=== PATIENT | female | born 1990 | race Caucasian/White ===

== ENCOUNTER 2020-02-01 17:18 | Inpatient (IN) | payer OTHER ==
--- NOTE | 2020-02-01 17:23 | PDOC ---
Rapid Medical Evaluation Time Seen by Provider: 02/01/20 17:21 Medical Evaluation: Allergies Allergy/AdvReac Type Severity Reaction Status Date / Time No Known Allergies Allergy Verified 02/01/20 17:20 02/01/20 17:21 CC: elevated bp, lower extremity edema, 37 weeks , went to radio sportscaster and was told to come here, sb donovan COMPENSATION MANAGER Exam: 2 + edema, bp elevated 170/102, hr 104 Plan: urine, labs, u/s, l& D notified Discharge Disposition - Diagnosis Elevated BP without diagnosis of hypertension - Referrals - Patient Instructions - Post Discharge Activity
[2020-02-01 17:29] VITALS: BMI 45.8
[2020-02-01 21:04] LABS: BASO % 0.1 % (0-2.0); EOS % 0.7 % (0-4.5); HEMATOCRIT 35.8 % (32.4-45.2); HEMOGLOBIN 12.1 GM/dL (10.7-15.3); LYMPH % 18.9 % (8-40); MCHC 33.7 g/dl (32.0-36.0); MEAN PLT VOLUME 9.5 fl (7.5-11.1); MONO % 7.2 % (3.8-10.2); NEUT % 73.1 % (42.8-82.8); PLATELET COUNT 195 K/MM3 (134-434); RBC 4.02 M/mm3 (3.60-5.2); RDW 14.5 % (11.6-15.6); WHITE BLOOD COUNT 7.7 K/mm3 (4.0-10.0)
[2020-02-01 21:05] LABS: URINE APPEARANCE CLEAR; URINE COLOR YELLOW; URINE GLUCOSE (UA) NEGATIVE (NEGATIVE)
[2020-02-01 21:06] LABS: EPI CELLS 19 /uL (0-25.1); HYALINE CASTS 1 /uL (0-3.1); PH,URINE 6.5 (5.0-8.0); URINE BACTERIA 296 /uL (0-1359); URINE BILIRUBIN NEGATIVE (NEGATIVE); URINE KETONE NEGATIVE (NEGATIVE); URINE LEUK ESTERASE NEGATIVE (NEGATIVE); URINE NITRITE NEGATIVE (NEGATIVE); URINE PROTEIN 3+ (NEGATIVE); URINE RBC 3 /uL (0-23.9); URINE WBC 13 /uL (0-25.8)
[2020-02-01 21:18] LABS: URIC ACID 5.7 mg/dL (2.6-7.2)
[2020-02-01 21:22] LABS: ALBUMIN 2.2 g/dl (3.4-5.0); BILIRUBIN,TOTAL 0.3 mg/dL (0.2-1); BLOOD UREA NITROGEN 11.4 mg/dL (7-18); CALCIUM 8.3 mg/dL (8.5-10.1); CREATININE 0.6 mg/dL (0.55-1.3); MAGNESIUM 1.9 mg/dL (1.8-2.4); POTASSIUM 4.1 mmol/L (3.5-5.1); TOT PROT 5.6 g/dl (6.4-8.2)
[2020-02-01] MEDS ORDERED: ELECTROLYTE-148 SOLN 1,000 ML IV SCH (22:15)
[2020-02-01] MEDS ORDERED: AMPICILLIN - 2 GM in SODIUM CHLORIDE 100 ML IVPB ONE (22:17)
[2020-02-01] MEDS ORDERED: DINOPROSTONE 10 MG VAGINAL SUPPOSITORY VG ONE (22:19)
--- NOTE | 2020-02-01 22:28 | HP ---
Past Medical History - Primary Care Physician PCP:: Filipe Mathis - Admission Chief Complaint: Elevated BP at health center History of Present Illness: Patient denies SOB, CP, Nunes/vision changes, Epigastric pain, tingling and numbness. She reports pronounced LE edema. History Source: Patient Limitations to Obtaining History: No Limitations - Past Medical History PRODUCT DESIGNER: No: Alzheimer's, CVA, Dementia, Migraine, Multiple Sclerosis, Peripheral Neuropathy, Parkinson's, Seizure, Syncope, TIA, Vertigo, Other Cardiovascular: No: AFIB, Aneurysm, Aortic Insufficiency, Aortic Stenosis, CAD, CHF, Deep Vein Thrombosis, HTN, Hyperlipdemia, LA, Mitral Insufficiency, Mitral Stenosis, Murmur, Pulmonary Hypertension, Other Pulmonary: No: Asthma, Bronchitis, Cancer, COPD, O2 Dependent, Pneumonia, Previously Intubated, Pulmonary Embolus, Pulmonary Fibrosis, Sleep Apnea, Other Gastrointestinal: No: Ascites, Cancer, Constipation, Crohn's Disease, Diverticulitis, Diverticulosis, Esophageal Varices, Gastritis, GERD, GI Bleed, Hemorrhoids, Hiatal Hernia, Inflamatory Bowel Disease, Irritable Bowel Disease, Pancreatitis, Peptic Ulcer Disease, Ulcerative Colitis, Other Hepatobiliary: No: Cirrhosis, Cholelithiasis, Cholecystitis, Choledocholithiasis, Hepatitis A, Hepatitis B, Hepatitis C, Other Renal/: No: Renal Failure, Renal Inusuff, BPH, Cancer, Hematuria, Hemodialysis, Neurogenic Bladder, Renal Calculi, UTI, Other Reproductive: No: Ectopic , Endometriosis, Fibroids, PID, Polycystic Ovary Syndrome, Postmenopausal, Other ...: 3 ...Para: 1 ...Term: 1 ...: 0 ...Spon : 1 ...Induced : 0 ...Living Children: 1 ...LMP: 05/18/19 ... Weeks Gestation by Dates: 36.0 ...EDC by Dates: 02/29/20 ...EDC by Sono: 02/22/20 Heme/Onc: No: Anemia, B12 Deficiency, Bleeding Disorder, Cancer, Current Chemotherapy, Current Radiation Therapy, Hemochromatosis, Hypercoaguable State, Myeloproliferative Synd, Sickle Cell Disease, Sickle Cell Trait, Thrombocytopenia, Other Infectious Disease: No: AIDS, C-Diff, Herpes Zoster, HIV, MRSA, STD's, Tuberculosis, VREF, Other Psych: No: Addictions, Anxiety, Bipolar, Depression, Panic, Psychosis, Schizophr enia, Other Musculoskeletal: No: Bursitis, Chronic low back pain, Hemiparesis, Hemiplegia, Osteoarthritis, Paraplegia, Other Rheumatology: No: Fibromyalgia, Gout, Lupus, Rheumatoid Arthritis, Sarcoidosis, Vasculitis, Other ENT: No: Allergic Rhinitis, Sinusitis, Other Endocrine: No: Samy's Disease, Clyde's Disease, Diabetes Insipidus, Diabetes Mellitus, Hyperparathyroidism, Hyperthyroidism, Hypothyroidism, Osteopenia, SIADH, Other Dermatology: No: Basal Cell, Cellulitis, Eczema, Melanoma, Psoriasis, Squamous Cell, Other - Past Surgical History Past Surgical History: Yes: None Hx Myomectomy: No Hx Transabdominal Cerclage: No - Smoking History Smoking history: Never smoked - Alcohol/Substance Use Hx Alcohol Use: No History of Substance Use: reports: None - Social History History of Recent Travel: No Home Medications - Allergies Allergies/Adverse Reactions: Allergies Allergy/AdvReac Type Severity Reaction Status Date / Time No Known Allergies Allergy Verified 02/01/20 17:34 Family Medical History Family History: Unremarkable Review of Systems - Review of Systems Constitutional: reports: No Symptoms Eyes: reports: No Symptoms HENT: reports: No Symptoms Neck: reports: No Symptoms Cardiovascular: reports: No Symptoms Respiratory: reports: No Symptoms Gastrointestinal: reports: No Symptoms Genitourinary: reports: No Symptoms Breasts: reports: No Symptoms Reported Musculoskeletal: reports: Other (LE swelling) Integumentary: reports: No Symptoms Neurological: reports: No Symptoms Endocrine: reports: No Symptoms Hematology/Lymphatic: reports: No Symptoms Psychiatric: reports: No Symptoms Physical Exam - Maternity Vital Signs: Vital Signs Temperature 98.8 F 02/01/20 17:21 Pulse Rate 92 H 02/01/20 17:21 Respiratory Rate 20 02/01/20 17:21 Blood Pressure 176/110 H 02/01/20 17:21 O2 Sat by Pulse Oximetry (%) 100 02/01/20 17:21 BP in L&D in mild range as reported by nursing Constitutional: Yes: No Distress HENT: Yes: Atraumatic Neck: Yes: Supple Cardiovascular: Yes: Regular Rate and Rhythm - Abdominal Exam/OB Number of Fetuses: Single Presentation: Vertex (sono) Regularity: Irritability Monitor Mode: External Heart Rate (range): 130 Category: I Accelerations: Uniform Decelerations: None - Vaginal Exam/OB Vaginal Bleeding: No Speculum Exam: No (cervidil placed in vaginal vault) Dilatation (cm): 0.5 Effacement (%): 50 Amniotic Membrane Status: Intact Presentation: Vertex/Position Station: -3 - Physical Exam Musculoskeletal: Yes: WNL Extremities: Yes: WNL Edema: Yes Edema: LLE: 2+, RLE: 2+ Integumentary: Yes: WNL Deep Tendon Reflex Grade: Normal +2 ...Motor Strength: WNL Psychiatric: Yes: Alert, Oriented - Labs Lab Results: CBC, BMP 02/01/20 20:40 02/01/20 20:40 Imaging - Results Ultrasound: Report Reviewed Assessment/Plan 30 y/o P1 @ 37.0wks, admitted for PEC w/o severe features, BP in mild range and no evidence of PRODUCT DESIGNER irritability, reassuring status, rH negative, + GDS and negative GTT, GBS unknown. Patient was counseled regarding diagnosis and indication for induction. Their respective risks and complications explained. Induction of labor initiated with cervidil. -Labetalol 200 BID -Continuous monitoring -Ampicillin for GBS prophylaxis -BP control
[2020-02-01] MEDS ORDERED: LABETALOL HCL 200 MG TABLET (FP) ONE (22:57)
[2020-02-01] MEDS: LABETALOL HCL 200 MG TABLET (FP) PO SCH (23:00)
[2020-02-02 00:38] LABS: BASO % 0.3 % (0-2.0); EOS % 0.5 % (0-4.5); HEMATOCRIT 36.5 % (32.4-45.2); HEMOGLOBIN 12.2 GM/dL (10.7-15.3); LYMPH % 20.9 % (8-40); MCH 29.8 pg (25.7-33.7); MCHC 33.4 g/dl (32.0-36.0); MEAN CELL VOLUME 89.1 fl (80-96); MEAN PLT VOLUME 9.5 fl (7.5-11.1); NEUT % 71.3 % (42.8-82.8); PLATELET COUNT 198 K/MM3 (134-434); RBC 4.09 M/mm3 (3.60-5.2); RDW 14.4 % (11.6-15.6); WHITE BLOOD COUNT 8.8 K/mm3 (4.0-10.0)
[2020-02-02 00:57] LABS: INR 0.91 (0.83-1.09); PROTHROMBIN TIME (PATIENT) 10.7 SEC (9.7-13.0)
[2020-02-02 01:00] LABS: ACTIVATED PTT 24.1 SECONDS (25.2-36.5)
[2020-02-02 01:06] LABS: BLOOD UREA NITROGEN 11.5 mg/dL (7-18); CALCIUM 8.1 mg/dL (8.5-10.1); CREATININE 0.5 mg/dL (0.55-1.3); POTASSIUM 4.2 mmol/L (3.5-5.1)
[2020-02-02] MEDS ORDERED: LABETALOL HCL 200 MG TABLET (FP) ONE (10:06)
[2020-02-02] MEDS: LABETALOL HCL 200 MG TABLET (FP) PO SCH ×2 (10:08→21:49)
[2020-02-02] MEDS ORDERED: AMPICILLIN - 2 GM in SODIUM CHLORIDE 100 ML IVPB ONE (11:00)
[2020-02-02] MEDS ORDERED: OXYTOCIN 30 UNITS in 0.9% NS 30 UNIT/500 ML INFUS.BAG IVPB ONE (11:05)
[2020-02-02] MEDS ORDERED: AMPICILLIN SODIUM 2 GM VIAL ONE (11:05)
--- NOTE | 2020-02-02 11:13 | PN ---
Progress Note (short form) - Note Progress Note: no head ache, blurred vision ,or RUQ pain cx 3 cm 80 vx -2 mi, fhr cat 1, irregular contraction cervidil removed, pitocin discussed , risks explained Last Vital Signs Temp Pulse Resp BP Pulse Ox 98.6 F 94 H 20 159/99 99 02/02/20 10:00 02/02/20 10:00 02/02/20 10:00 02/02/20 10:00 02/02/20 07:30 plan monitor BP pitocin induction
[2020-02-02] MEDS ORDERED: OXYTOCIN 30 UNITS in 0.9% NS 30 UNIT/500 ML INFUS.BAG IVPB SCH (11:30)
[2020-02-02] MEDS ORDERED: ELECTROLYTE-148 SOLN 1,000 ML IV SCH (11:30)
[2020-02-02] MEDS ORDERED: BUPIVACAINE HCL/PF 0.25% (2.5MG/ML) 10 ML VIAL ONE (11:56)
[2020-02-02] MEDS ORDERED: PCA PUMP NR ONE (11:57)
[2020-02-02] MEDS ORDERED: FENTANYL/BUPIVACAINE/NS/PF - PCEA - 50 ML DISP.SYRIN EP ONE (12:18)
[2020-02-02] MEDS ORDERED: NALOXONE HCL 0.4 MG/ML VIAL IVPUSH PRN (12:19)
[2020-02-02] MEDS ORDERED: FENTANYL/BUPIVACAINE/NS/PF - PCEA - 50 ML DISP.SYRIN EP SCH ×2 (12:30→12:44)
--- NOTE | 2020-02-02 12:53 | PN ---
Progress Note (short form) - Note Progress Note: cx 4 cm, 80 vx -1 arom, clear , scalp electrode applied , LT side, has epidural anesthesia , bp normal
[2020-02-02] MEDS ORDERED: OXYTOCIN 20 UNITS in 0.9% NS 20 UNIT/1,000 ML INFUS.BAG IV ONE (13:44)
[2020-02-02] MEDS ORDERED: LIDOCAINE HCL 1% PRESERVATIVE FREE - 30ML VIAL ONE (13:46)
[2020-02-02] MEDS ORDERED: AMPICILLIN - 1 GM in SODIUM CHLORIDE 100 ML IVPB SCH (15:00)
[2020-02-02 15:19] LABS: CORD BASE EXCESS -3.3 mmol/L (0-2); CORD HCO3 23.5 mmHg (20-29); CORD PCO2 48.4 mmHg (30-78); CORD pH 7.304 (7.14-7.44)
[2020-02-02 15:21] LABS: CORD BASE EXCESS -3.9 mmol/L (0-2); CORD HCO3 24.7 mmHg (20-29); CORD PCO2 59.6 mmHg (30-78); CORD pH 7.236 (7.14-7.44)
[2020-02-02] MEDS ORDERED: WITCH HAZEL 50% (TUCKS) 40 PAD/JAR PAD TP PRN (15:33)
[2020-02-02] MEDS ORDERED: ACETAMINOPHEN 325 MG TABLET (FP) PO PRN (15:33)
[2020-02-02] MEDS ORDERED: IBUPROFEN 600 MG TABLET (FP) PO PRN (15:33)
[2020-02-02] MEDS ORDERED: METHYLERGONOVINE MALEATE 0.2 MG/1 ML AMP IM PRN (15:33)
[2020-02-02] MEDS ORDERED: BISACODYL 10 MG SUPP.RECT RC PRN (15:33)
[2020-02-02] MEDS ORDERED: BENZOCAINE 28 GM HEMORRHOIDAL OINTMENT TP PRN (15:33)
[2020-02-02] MEDS ORDERED: BENZOCAINE 20% 57 GM BOTTLE TP PRN (15:33)
--- NOTE | 2020-02-02 15:38 | PN ---
Delivery - Delivery Vaginal Delivery: Spontaneous ( cx full, head dlivered JUAREZ, cord around neck once reduced , ant and post. shulder with no difficulty, live baby girl 9/9 , placenta complete, no laceration, ebl 300 cc , no complication, baby bonded with mom, cord blood gas obtained) Type of Anesthesia: Epidural Episiotomy/Laceration: None EBL (cc): 300 Delivery, Single - Stages of Labor Date 1st Stage Initiatied: 02/02/20 Time 1st Stage Initiated: 10:00 Date 2nd Stage Initiated: 02/02/20 Time 2nd Stage Initiated: 13:40 Date of Delivery: 02/02/20 Time of Delivery: 14:02 Time Placenta Delivered: 14:05 - Condition of Radio Interference Expert/Vice President Of Consulting Services Present: No Infant Gender: Female Weight: 6 lb 14 oz Position: Left, OA Total Hours ROM (Hrs/Mins): 0130 - 1 Minute Total Score: 8 5 Minutes Total Score: 9 - [place] Feeding Plan Initial Plan: Elected not to breastfeed exclusively throughout hospitalization
[2020-02-02] MEDS ORDERED: OXYTOCIN 20 UNITS in 0.9% NS 20 UNIT/1,000 ML INFUS.BAG IV SCH (15:45)
[2020-02-02] MEDS: FERROUS SO4 325 MG TABLET (FP) PO SCH (17:12)
[2020-02-02] MEDS: AMPICILLIN - 1 GM in SODIUM CHLORIDE 100 ML IVPB SCH ×2 (17:21→17:28)
--- NOTE | 2020-02-03 06:58 | PN ---
Post Progress Note - Subjective Subjective: no c/o headache cramps on & off voiding without difficulty Type of Delivery: Vital Signs: Vital Signs Temperature 98 F 02/03/20 06:00 Pulse Rate 90 02/03/20 06:00 Respiratory Rate 18 02/03/20 06:00 Blood Pressure 134/76 02/03/20 06:00 O2 Sat by Pulse Oximetry (%) 98 02/02/20 14:35 Selected Entries 02/02/20 02/02/20 02/02/20 14:00 15:20 16:15 Blood Pressure 172/83 H 144/70 123/79 02/02/20 02/03/20 21:50 01:31 Blood Pressure 138/76 125/76 Breast Exam: Yes: Soft, Other (bottle feeding ). No: Engorged Uterus: Yes: Fundus Firm, Fundus below umbilicus, Non-tender Lochia: Yes: Rubra Lochia, amount: Moderate Extremities: Yes: Calves non-tender, Edema (reflexes normal ) Perineum: Yes: Intact Activity: Ambulating - Labs Labs: CBC WBC 8.8 K/mm3 (4.0-10.0) 02/02/20 00:15 RBC 4.09 M/mm3 (3.60-5.2) 02/02/20 00:15 Hgb 12.2 GM/dL (10.7-15.3) 02/02/20 00:15 Hct 36.5 % (32.4-45.2) 02/02/20 00:15 MCV 89.1 fl (80-96) 02/02/20 00:15 MCH 29.8 pg (25.7-33.7) 02/02/20 00:15 MCHC 33.4 g/dl (32.0-36.0) 02/02/20 00:15 RDW 14.4 % (11.6-15.6) 02/02/20 00:15 Plt Count 198 K/MM3 (134-434) 02/02/20 00:15 MPV 9.5 fl (7.5-11.1) 02/02/20 00:15 Absolute Neuts (auto) 6.3 K/mm3 (1.5-8.0) 02/02/20 00:15 Neutrophils % 71.3 % (42.8-82.8) 02/02/20 00:15 Lymphocytes % 20.9 % (8-40) 02/02/20 00:15 Monocytes % 7.0 % (3.8-10.2) 02/02/20 00:15 Eosinophils % 0.5 % (0-4.5) 02/02/20 00:15 Basophils % 0.3 % (0-2.0) 02/02/20 00:15 Nucleated RBC % 0 % (0-0) 02/02/20 00:15 Problem List - Problems (1) Encounter for care after hospital delivery Code(s): Z39.2 - ENCOUNTER FOR ROUTINE FOLLOW-UP Assessment/Plan s/p vag delivery <24 hrs ,s/p induction of labor due to preclempsia pt on Po Labetalol 200 mg bid , BP well controlled baby in NICU Plan ct observation october discharge day #2
[2020-02-03 08:53] LABS: BASO % 0.3 % (0-2.0); EOS % 0.3 % (0-4.5); HEMATOCRIT 32.5 % (32.4-45.2); LYMPH % 18.9 % (8-40); MCH 29.8 pg (25.7-33.7); MCHC 33.7 g/dl (32.0-36.0); MEAN CELL VOLUME 88.3 fl (80-96); MEAN PLT VOLUME 9.1 fl (7.5-11.1); MONO % 7.3 % (3.8-10.2); NEUT % 73.2 % (42.8-82.8); PLATELET COUNT 175 K/MM3 (134-434); RBC 3.68 M/mm3 (3.60-5.2); RDW 14.6 % (11.6-15.6); WHITE BLOOD COUNT 8.2 K/mm3 (4.0-10.0)
[2020-02-03] MEDS: FERROUS SO4 325 MG TABLET (FP) PO SCH ×2 (09:47→18:51)
[2020-02-03] MEDS: PRENATAL VITAMINS W/ FOLIC ACID TABLET (FP) PO SCH (09:52)
[2020-02-03] MEDS ORDERED: DIPHTH,PERTUSS(ACELL),TET 0.5 ML DISP.SYRIN IM ONE (10:00)
[2020-02-03] MEDS: LABETALOL HCL 200 MG TABLET (FP) PO SCH (10:55)
[2020-02-03] MEDS ORDERED: SENNOSIDES/DOCUSATE COMBO (SENNA PLUS) TABLET (UD) PO PRN (22:00)
[2020-02-03] MEDS: LABETALOL HCL 100 MG TABLET (FP) PO SCH (22:02)
--- NOTE | 2020-02-04 06:38 | DS ---
Physical Examination Vital Signs: Vital Signs Temperature 98.8 F 02/04/20 05:00 Pulse Rate 88 02/04/20 05:00 Respiratory Rate 20 02/04/20 05:00 Blood Pressure 148/88 02/04/20 05:00 O2 Sat by Pulse Oximetry (%) 98 02/02/20 14:35 Constitutional: Yes: Well Nourished, No Distress, Calm Eyes: Yes: WNL, Conjunctiva Clear, EOM Intact HENT: Yes: WNL, Atraumatic, Normocephalic Neck: Yes: WNL, Supple, Trachea Midline Cardiovascular: Yes: WNL, Regular Rate and Rhythm Respiratory: Yes: WNL, Regular, CTA Bilaterally Gastrointestinal: Yes: WNL, Normal Bowel Sounds Musculoskeletal: Yes: WNL Extremities: Yes: WNL Edema: No Integumentary: Yes: WNL Neurological: Yes: WNL, Alert, Oriented ...Motor Strength: WNL Psychiatric: Yes: WNL Labs: CBC, BMP 02/03/20 08:10 02/02/20 00:15 Discharge Summary Problems reviewed: Yes Reason For Visit: INDUCTION OF LABOR Current Active Problems Elevated BP without diagnosis of hypertension (Acute) Encounter for care after hospital delivery (Acute) Procedures: Principal: Hospital Course: Patient presented for IOL for PEC She had an uncomplicated IOL and She met all milestones PP Her BP was managed with Labetalol She was discharged home on PPD#2, with office follow up recommended within 7 da ys M. MD Willow Condition: Stable - Instructions Diet, Activity, Other Instructions: Regular Diet Follow up in 5 -7 days for a blood pressure check in the [facility] Referrals: Filipe Mathis MD [Staff Physician] - Yandel Hamilton MD [Staff Physician] - Disposition: HOME - Home Medications Comprehensive Discharge Medication List: Ambulatory Orders Mv-Mn/Iron/FA/Herbal/Digestive [ One Tablet] 1 tab PO DAILY 02/02/20 Breast Pump 1 each MC 5XD 30 Days #1 each 02/03/20 Ibuprofen 600 mg PO Q6H PRN #30 tablet 02/03/20 Labetalol HCl 300 mg PO BID #60 tablet 02/03/20
[2020-02-04] MEDS: FERROUS SO4 325 MG TABLET (FP) PO SCH (10:10)
[2020-02-04] MEDS: PRENATAL VITAMINS W/ FOLIC ACID TABLET (FP) PO SCH (10:10)
[2020-02-04] MEDS: LABETALOL HCL 100 MG TABLET (FP) PO SCH (10:10)
[2020-02-04 11:56] VITALS: BP 153/89; PULSE 87; TEMP 97.5
== END 2020-02-04 12:55 | disposition home or self-care (01) | DRG 560 ==
LOC: JER 17:18 → JLDR 22:15 → J3W 02-02 16:15
PROVIDERS: ADMIT Obstetrics & Gynecology; ATTEND Obstetrics & Gynecology
PROC: 10E0XZZ Delivery of Products of Conception, External Approach (ICD-10-PCS; principal; 2020-02-02)
PROC: 3E0P7VZ Introduction of Hormone into Female Reproductive, Via Natural or Artificial Opening (ICD-10-PCS; 2020-02-02)
DX: O69.81X0 Labor and delivery complicated by cord around neck, without compression, not applicable or unspecified (principal); O14.94 Unspecified pre-eclampsia, complicating childbirth; Z3A.37 37 weeks gestation of pregnancy; Z37.0 Single live birth
CPT/HCPCS: 36415; 36600; 59409; 76816-TC; 80048; 80053; 81003; 82565; 82803; 83615; 83735; 84156; 84550; 85025; 85610; 85730; 86780; 86850; 86870; 86900; 86901; 86902; 87086; 87389; 99285-25; U0003